=== PATIENT | female | born 1965 | race Caucasian/White ===

== ENCOUNTER 2017-11-06 05:16 | Emergency (ER) | payer BC ==
[2017-11-06 05:23] VITALS: BP 137/74; BMI 29.9
[2017-11-06] MEDS ORDERED: NORFLEX INJ IM ONE (05:34)
[2017-11-06] MEDS ORDERED: TORADOL 60 MG VIAL IM ONE (05:34)
[2017-11-06] MEDS ORDERED: TORADOL 60 MG VIAL ONE (05:37)
[2017-11-06] MEDS ORDERED: NORFLEX INJ ONE (05:37)
--- NOTE | 2017-11-06 05:38 | DR.GENAD ---
HPI - PCP Primary Care Physician: ARNIE - HPI Comment HPI Comment: HISTORY BELOW. - Complaint/Symptoms Chief Complaint Doctors Comments: PLEURITIC LEFT SIDED CHEST PAIN. BRUISING ANTERIOR LEFT LOWER CHEST WELL LEFT FOREARM. NO HEAD OR NECK INJURY. Chief Complaint:: LEFT CHESTWALL PAIN , LEFT FA PAIN AFTER FALLING OUT OF BED, Self Treatment fo Chief Complaint: NONE - Nurses notes reviewed Nurses Notes Review: Yes - Source History Provided: Patient - Mode of Arrival Mode of Arrival: Ambulatory - Timing Onset of Chief Complaint: 11/06/17 Came on: Suddenly - Duration Duration: Constant Duration: Hours - Severity Severity: Moderate PMH - PMH Past Medical History: No Past Surgical History: Yes Surgical History: Cholecystectomy, Hysterectomy, Ortho Surgery - Family History History of Family Medical Conditions: Yes Family Medical History: Coronary Artery Disease, Heart Failure - Social History Does patient currently use any type of tobacco product: Yes Have you used tobacco products in the last 12 months: Yes Type of Tobacco Use: Cigarettes Does any household member use tobacco: No Alcohol Use: None Do you use any recreational Drugs:: No Lives With: Alone Lives Where: Home - infectious screening In the last 2 months have you had wt loss of >10#?: NO Have you had fever, night sweats or hemotysis?: No Have you traveled outside the country in the last 6 months?: No Isolation: Standard ROS - Review of Systems Constitutional: No Symptoms Reported Eyes: No Symptoms Reported ENTM: No Symptoms Reported Respiratoy: No Symptoms Reported Cardiovascular: Chest Pain (LEFT SIDED CHEST TENDERNESS.) Gastrointestinal/Abdominal: No Symptoms Reported Genitourinary: No Symptoms Reported Neurological: No Symptoms Reported Musculoskeletal: No Symptoms Reported Integumentary: No Symptoms Reported Hematologic/Lymphatic: No Symptoms Reported Endocrine: No Symptoms Reported All Other Systems: Reviewed and Negative PE - Vital Signs Vitals: Temperature 97.8 F Pulse Rate [Right Brachial] 104 Pulse Rate 104 Respiratory Rate 18 Blood Pressure [Right Arm] 137/74 Blood Pressure 137/74 O2 Sat by Pulse Oximetry 98 - General Limitations: No Limitations General Appearance: Alert - Head Head Exam: Normal Inspection - Eyes Eye exam: Normal Appearance - ENT ENT Exam: Normal External Ear Exam External Ear Exam: Normal External Inspection TM/Canal Exam: Bilateral Normal Nose Exam: Normal Nose Exam Mouth Exam: Normal Inspection Throat Exam: Normal Inspection - Neck Neck Exam: Normal Inspection - Chest Chest Inspection: Symmetric Chest Wall Rise, Tenderness (LEFT RIB) - Respiratory Respiratory Exam: Chest Wall Tenderness (LEFT RIB) Respiratory Exam: Bilateral Clear to Auscultation - Cardiovascular Cardiovascular Exam: Regular Rate, Normal Rhythm, Normal Heart Sounds - Abdominal Exam Abdominal Exam: Normal Bowel Sounds, Soft. negative: Tenderness - Extremities Extremities Exam: Other (ABRSION LEFT FOREARM.) - Back Back Exam: Normal Inspection - Neurologic Neurological Exam: Alert, Oriented X3 - Psychiatric Psychiatric Exam: Normal Affect, Normal Mood - Skin Skin Exam: Erythema MDM - Differential Diagnosis Differential Diagnosis: CHEST AND RIB FRACTURE, CONTUSION, STRAIN, AND LEFT FOREARM ABRASION Course - Treatment Treatment: SEE ORDERS. IM TORADOL AND NORFLEX IN ED. - Education/Counseling Education/Counseling: Patient, Education Educated On: Diagnosis, Needs for Follow Up ROR - XRAY XRAY Interpreted by: Radiologist XRAY Findings: REPORT DISCUSS WITH PATIENT. - Diagnosis Discharge Problem: Contusion of left chest wall Qualifiers: Encounter type: initial encounter Qualified Code(s): S20.212A - Contusion of left front wall of thorax, initial encounter Abrasion of left forearm Qualifiers: Encounter type: initial encounter Qualified Code(s): S50.812A - Abrasion of left forearm, initial encounter Abrasion of left chest wall Qualifiers: Encounter type: initial encounter Qualified Code(s): S20.312A - Abrasion of left front wall of thorax, initial encounter Contusion of rib on left side Qualifiers: Encounter type: initial encounter Qualified Code(s): S20.212A - Contusion of left front wall of thorax, initial encounter - Discharge Plan Disposition: 01 HOME, SELF-CARE Condition: Stable Prescriptions: Cyclobenzaprine HCl [FLEXERIL 10 MG *] 10 mg PO TID #30 tab Ibuprofen [MOTRIN TAB 600 MG *] 600 mg PO TID PRN #30 tab PRN Reason: Pain/Inflammation Oxycodone HCl/Acetaminophen [Percocet 7.5-325 mg Tablet] 1 each PO Q6H PRN #20 tablet PRN Reason: - Follow ups/Referrals Follow ups/Referrals: [facility],None [Primary Care Provider] - 3 days - Instructions Instructions: Musculoskeletal Pain, Rib Contusion Additional Instructions: RETURN TO ED IF WORSE.
--- NOTE | 2017-11-06 06:09 | RAD ---
Examination: Left ribs, four views History: Fell Findings: PA view of chest demonstrates normal heart size with clear lungs and no evidence for pleura l effusion or pneumothorax. Additional views of the left ribs demonstrate no evidence for acute fract ure, contour deformity or osteolytic process. Impression: No acute features identified. Reported By:
[2017-11-06] MEDS ORDERED: PERCOCET TAB 5/325 MG ONE (06:32)
[2017-11-06] MEDS ORDERED: PERCOCET TAB 5/325 MG PO ONE (06:32)
== END 2017-11-06 06:35 | disposition home or self-care (01) ==
LOC: ER 05:16
DX: S20.212A Contusion of left front wall of thorax, initial encounter (principal); S50.812A Abrasion of left forearm, initial encounter; S20.312A Abrasion of left front wall of thorax, initial encounter; W06.XXXA Fall from bed, initial encounter; Y92.9 Unspecified place or not applicable
CPT/HCPCS: 71111; 96372; 99282; J1885; J2360